=== PATIENT | male | born 1960 | race Caucasian/White ===

== ENCOUNTER 2024-11-20 12:54 | Outpatient (CLI) | payer MEDICARE, SELFPAY ==
--- NOTE | 2024-11-20 13:05 | MR_ITS ---
WS: [id number] MRI RIGHT SHOULDER HISTORY: BILATERAL SHOULDER PAIN/?ROTATOR CUFF TEAR COMPARISON: None available. TECHNIQUE: Multiplanar sequences of the shoulder joint are submitted. Moderate AC joint arthritis. Hypertrophic bone formation from the distal clavicle and acromion. AC joint is narrowed with small articular surface erosions. Fluid in the AC joint. Mild synovial hypertrophy. Small amount of fluid in the subacromial and subdeltoid bursa. Moderate subacromial impingement. Biceps tendon is present in the bicipital groove with split tear. No os acromion. Mild glenohumeral joint narrowing. No significant high riding of the humeral head. No rotator cuff muscle atrophy or edema. 6 mm low signal focus in the distal supraspinatus tendon consistent with calcific tendinitis. Small insertion site tear of the supraspinatus tendon with additional tendinopathy. S ubscapularis tendon is intact. There is an additional low signal focus in the distal subscapularis tendon consistent with calcific tendinitis. Infraspinatus tendon is intact. Mild increased signal in the coracohumeral ligament. No labral tear. Mild thickening and increased signal in the axillary pouch. Small fluid collection measuring 4.5 mm adjacent to the distal supraspinatus tendon and closely associated with the biceps tendon. Fluid is probably external to the rotator cuff tendon. MR/MR shoulder RT wo con* [id number] IMPRESSION: 1. Moderate AC joint arthropathy with hypertrophic bone osteophyte encroaching upon the supraspinatus. 2. Mild subacromial impingement upon the supraspinatus. 3. Calcific tendinitis involving the distal supraspinatus and subscapularis te ndons. 4. Insertion site tear of the supraspinatus tendon. 5. Biceps tendon remains in the bicipital groove with a focal split tear. 6. Mild increased signal of the coracohumeral ligament and thickening of the a xillary pouch. Correlate for adhesive capsulitis.
--- NOTE | 2024-11-20 13:05 | MR_ITS ---
WS: [id number] MRI LEFT SHOULDER HISTORY: BILATERAL SHOULDER PAIN/?ROTATOR CUFF TEAR COMPARISON: None available. TECHNIQUE: Multiplanar sequences of the shoulder joint are submitted. Severe AC joint arthropathy. Fluid along the AC ligament. Hypertrophic bone formation distal clavicle and acromion. Loss of the normal articular surface. Subacromial impingement is moderate. No os acromion. Biceps tendon is in normal position. Mildly high riding humeral head. Tendinopathy of the distal supraspinatus. No supraspinatus tear. No muscle atrophy or edema. Thickening and increased signal in the distal subscapularis tendon. There is a tiny focal hypointensity measuring 3 mm which is probably calcific tendinitis. Infraspinatus tendon is intact. Normal axillary pouch. Cystic changes to the base of the superior labrum and glenoid. There is increased signal in the labrum. Abnormal signal in the anterior labrum consistent with a focal tear. The adjacent middle glenohumeral ligament is of intermediate signal and partially torn. MR/MR shoulder LT wo con* [id number] IMPRESSION: 1. Severe AC joint arthritis. 2. Moderate subacromial impingement upon the supraspinatus. 3. No rotator cuff tear. 4. Suspect 3 mm calcific tendinitis in the distal subscapularis tendon. 5. Cystic changes in the superior labrum and glenoid. Abnormal signal in the s uperior anterior labrum consistent with labral tears. 6. Intermediate signal in the middle glenohumeral ligament from at least a par tial tear. 7. Mild tendinopathy distal supraspinatus tendon. 8. Mild tendinopathy distal subscapularis tendon.
== END 2024-11-20 12:55 | disposition home or self-care (01) ==
PROVIDERS: Visit Provider Orthopaedic Surgery Sports Medicine
DX: M19.012 Primary osteoarthritis, left shoulder (principal); M19.011 Primary osteoarthritis, right shoulder; M25.412 Effusion, left shoulder; M25.411 Effusion, right shoulder; M25.711 Osteophyte, right shoulder; M75.42 Impingement syndrome of left shoulder; M75.41 Impingement syndrome of right shoulder; S46.211A Strain of muscle, fascia and tendon of other parts of biceps, right arm, initial encounter; X58.XXXA Exposure to other specified factors, initial encounter
CPT/HCPCS: 73221

== ENCOUNTER 2025-01-02 15:18 | Outpatient (CLI) | payer MEDICARE, SELFPAY ==
--- NOTE | 2025-01-02 15:28 | USCV_ITS ---
KayleyTrevon Age: 64 Gender: M : 1960 Exam Date: 01/02/2025 15:35 Ordering Phys: Yamileth Whittaker MD Technologist: Exam Location: [facility] [place] Indication: hx lt ica stenosis Risk Factors: Previous Vascular Surgery: Right Brachial BP: / Left Brachial BP: / Right Left Velocity (cm/s) Spectral Plaque Velocity (cm/s) Spectral Plaque Syst/Diast Broadening Syst/Diast Broadening 80.20/ 16.70 Prox CCA 67.70 / 21.00 73.70/ 15.40 Mid CCA 91.70 / 22.70 65.90/ 15.40 Distal CCA 83.60 / 21.70 64.60/ 19.30 Prox ICA 45.10 / 13.90 64.60/ 20.60 Mid ICA 61.10 / 23.00 45.20/ 15.60 Distal ICA 53.10 / 22.00 ECA 99.30 1.00 ICA/CCA 0.70 Antegrade Vertebral Antegrade 34.80/ 9.50 cm/s 44.00/ 15.90 cm/s Tri Subclavian Tri 148.9 0 CONCLUSIONS Right ICA stenosis <50%. Mild atheromatous plaque right carotid bulb/ICA. Left ICA stenosis <50%. Mild atheromatous plaque left carotid bulb/ICA. Intimal thickening in the common carotid arteries and internal carotid arteries bilaterally. Normal antegrade Doppler flow noted in the right vertebral artery. Normal antegrade Doppler flow noted in the left vertebral artery. Kofi Grimaldo MD (Electronically Signed) Final Date: 02 January 2025 16:58 S
== END 2025-01-02 15:19 | disposition home or self-care (01) ==
LOC: RAD 15:20
PROVIDERS: PCP Family Medicine; Visit Provider Family Medicine
DX: I65.23 Occlusion and stenosis of bilateral carotid arteries (principal)
CPT/HCPCS: 93880